=== PATIENT | female | born 2005 | race Caucasian/White ===

== ENCOUNTER → 2024-01-11 | Outpatient (CLI) | payer BC ==
[2024-01-11 15:55] LABS: Basophils # (A) 0.02 X 10*3/uL (0.00-0.10); Basophils % (A) 0.3 %; Eosinophils # (A) 0.02 X 10*3/uL (0.04-0.35); Eosinophils % (A) 0.3 %; HCT 39.1 % (37.2-46.3); HGB 12.9 g/dL (12.0-15.0); Lymphocytes # (A) 1.96 X 10*3/uL (0.90-5.00); Lymphocytes % (A) 25.6 %; MCH 30.1 pg (27.0-32.0); MCV 91.4 FL (80.0-97.0); Mean Platelet Volume 10.7 FL (9.5-12.2); Monocytes # (A) 0.85 X 10*3/uL (0.20-1.00); Monocytes % (A) 11.1 %; NRBC Per 100 WBC 0 X 10*3/uL (0.00-0.01); Neutrophils % (A) 62.4 %; Platelet Count 234 X 10*3/uL (140-440); RBC 4.28 X 10*6/uL (4.10-5.20); RDW 12.6 % (11.5-14.5); WBC 7.67 X 10*3/uL (4.50-10.00)
[2024-01-11 16:07] LABS: Erythrocyte Sedimentation Rate 6 mm/Hr (0-20)
[2024-01-11 16:08] LABS: T4, Free (Free Thyroxine) 1.26 ng/dL (0.83-1.43)
[2024-01-11 16:11] LABS: Thyroid Peroxidase Antibodies 12.8 U/mL (0.0-33.0)
== END | disposition home or self-care (01) ==
LOC: LABWHC1 08:43
PROVIDERS: ATTEND Nurse Practitioner Family
DX: L28.2 Other prurigo (principal)
CPT/HCPCS: 36415; 82785; 83520; 84439; 84443; 85025; 85652; 86038; 86376

== ENCOUNTER → 2024-06-15 | Outpatient (CLI) | payer BC, OTHER ==
[2024-06-15 18:18] LABS: HCT 42.4 % (37.2-46.3); HGB 14.2 g/dL (12.0-15.0); MCH 30.9 pg (27.0-32.0); MCHC 33.5 g/dL (32.0-37.0); MCV 92.2 FL (80.0-97.0); Mean Platelet Volume 10.9 FL (9.5-12.2); NRBC Per 100 WBC 0 X 10*3/uL (0.00-0.01); Platelet Count 216 X 10*3/uL (140-440); RDW 12.6 % (11.5-14.5); WBC 3.93 X 10*3/uL (4.50-10.00)
[2024-06-15 18:43] LABS: ALT 13 U/L (8-44); AST 21 U/L (13-35); Albumin 4.9 g/dL (3.8-4.9); Albumin/Globulin Ratio 1.96 Ratio (1.60-3.17); Alkaline Phosphatase 45 U/L (41-126); BUN/Creat Ratio 12.11 Ratio (12.00-20.00); Blood Urea Nitrogen 10.9 mg/dL (9.0-27.0); Carbon Dioxide 20.2 mmol/L (21.6-31.8); Chloride 106 mmol/L (96-109); Chol/HDL Ratio 3.49 Ratio; Globulin 2.5 g/dL (1.6-3.3); Glucose 90 mg/dL (70-110); LDL Cholesterol,Calculated 118.7 mg/dL (0.0-131.0); Potassium 4.5 mmol/L (3.5-5.5); Sodium 140 mmol/L (135-145); T4, Free (Free Thyroxine) 1.39 ng/dL (0.83-1.43); Total Bilirubin 0.7 mg/dL (0.3-1.2); Total Protein 7.4 g/dL (6.2-8.2); VLDL Calculation 15.38 mg/dL (5.00-40.00)
== END | disposition home or self-care (01) ==
LOC: LABWHC1 13:02
PROVIDERS: ATTEND Pediatrics Adolescent Medicine
DX: E55.9 Vitamin D deficiency, unspecified (principal); E63.9 Nutritional deficiency, unspecified; F41.9 Anxiety disorder, unspecified
CPT/HCPCS: 36415; 80053; 80061; 82306; 83036; 84439; 84443; 85027